=== PATIENT | female | born 1990 | race Caucasian/White ===

== ENCOUNTER 2020-12-27 14:24 | Emergency (ER) | payer OTHER, SELFPAY ==
[2020-12-27 15:05] VITALS: BP 123/61; PULSE 70; RESP 18; TEMP 36.8; O2SAT 100; BMI 38.6
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
== END 2020-12-27 16:55 | disposition home or self-care (01) ==
PROVIDERS: Emergency Provider Internal Medicine; PCP Pediatrics
DX: S29.012A Strain of muscle and tendon of back wall of thorax, initial encounter (principal); V43.52XA Car driver injured in collision with other type car in traffic accident, initial encounter; Y93.89 Activity, other specified; Y92.414 Local residential or business street as the place of occurrence of the external cause; Y99.9 Unspecified external cause status
CPT/HCPCS: 99283

== ENCOUNTER 2021-12-31 13:13 | Outpatient (REF) | payer OTHER, SELFPAY ==
[2021-12-31 14:20] LABS: Binax Internal Control QC Valid; Binax Now Covid-19 Ag Negative (Negative)
== END 2021-12-31 13:14 | disposition home or self-care (01) ==
LOC: HO.HMGCLDS 13:13
PROVIDERS: Visit Provider Physician Assistant Medical
DX: Z20.822 Contact with and (suspected) exposure to COVID-19 (principal)
CPT/HCPCS: 87811

== ENCOUNTER 2023-05-12 11:37 | Outpatient (AMB) | payer OTHER, SELFPAY ==
--- NOTE | 2023-05-12 11:45 | MHC.OFFWIV ---
Intake Vital Signs 05/12/23 11:51 Height 5 ft 4 in Weight 237 lb BMI 40.7 BP 112/60 Blood Pressure Location Rt brachial Position Sitting Pulse 88 Pulse Source Pulse Oximeter Temp 98.2 F Temp Source Oral Pulse Oximetry (%) 98 Oxygen Delivery Method Room Air Intake Visit Reasons: EP LT ?[place] [facility] Intake Note: Pt is here today c/o Lt eye red and swollen. Woke up this morning with Lt eye d/c Patient Tobacco Use Status: Never used Tobacco Allergies No Known Allergies Allergy (Verified 05/12/23 11:54) Do you need a note to return to daycare/school/sports/work: Yes HPI EP LT ?[place] [facility] HPI Details Patient is a 32-year-old female comes to the walk-in clinic complaining of irritation, with crusting and goopy discharge to the left eye upon waking this morning. No acute trauma, no vision changes, no foreign body, no associated respiratory symptoms, and no obvious sick contacts. [facility] Social History Patient Tobacco Use Status: Never used Tobacco Review of Systems Const All systems reviewed & are unremarkable except as noted in HPI and below Physical Exam Vital Signs: Last Vital Signs Temp 98.2 F 05/12/23 11:51 Pulse 88 05/12/23 11:51 BP 112/60 05/12/23 11:51 Pulse Ox 98 05/12/23 11:51 Oxygen Delivery Method Room Air 05/12/23 11:51 BMI result Body Mass Index 40.7 Eyes Other: scant yellow crusting and discharge Periorbital: periorbital findings normal Eyelids: Yes eyelid abnormality (mild edema and erythema) Conjunctivae: conjunctival abnormal left and diffuse (injection) Pupils: Equal, round and reactive pupils present EOM: EOMs intact bilaterally Neuro Cranial nerves: Yes Equal, round and reactive pupils present Assessment & Plan Assessment & Plan (1) Acute conjunctivitis of left eye: Code(s): H10.32 - Unspecified acute conjunctivitis, left eye Qualifiers: Acute conjunctivitis type: viral Qualified Code(s): B30.9 - Viral conjunctivitis, unspecified Plan: Acute left eye conjunctivitis, wrote her for e-mycin ophthalmic ointment in case it becomes bacterial. She is to follow up if symptoms persist or worsen. Medications: New erythromycin 0.5 inches ophthalmic (eye) TID 3.5 grams 0RF Coding Level of Care Code Est Pt Level 3 (91369) Diagnoses Acute viral conjunctivitis of left eye B30.9 Acute conjunctivitis type: viral
[2023-05-12 11:51] VITALS: BP 112/60; PULSE 88; TEMP 36.8; O2SAT 98; BMI 40.7
== END 2023-05-12 12:35 | disposition home or self-care (01) ==
PROVIDERS: PCP Family Medicine; Visit Provider Physician Assistant Medical
DX: B30.9 Viral conjunctivitis, unspecified (principal)
CPT/HCPCS: 99051; 99213